=== PATIENT | female | born 1960 | race Caucasian/White ===

== ENCOUNTER 2024-01-13 06:10 | Day surgery (SDC) | payer SELFPAY ==
[2023-12-28 12:38] LABS: International Normalized Ratio 0.9; Partial Thromboplast Time 25.4 Seconds (24.1-36.2); Prothrombin Time (Protime)PT. 12.4 SECONDS (11.7-14.9)
[2023-12-28 13:38] LABS: AST(SGOT) 19 U/L (15-37); Alanine Aminotransfer ALT/SGPT 27 U/L (13-56); Albumin, Serum 3.7 g/dL (3.2-5.0); Alkaline Phosphatase 106 U/L (45-117); Bilirubin, Direct 0.15 mg/dL (0.00-0.30); Globulin 3.4 g/dL (2.2-4.2); Protein, Total 7.1 g/dL (6.4-8.2); Thyroid Stim Hormone (TSH) 0.01 uIU/mL (0.358-3.74)
[2024-01-13] VITALS (9 sets, daily range): BP systolic 115–149; BP diastolic 64–83; PULSE 71–92; RESP 12–18; TEMP 36.3–37.2; O2SAT 92–99; BMI 29.5
--- OUTSIDE RECORDS SUMMARY | 2024-01-13 06:13 | XMS RPT_ITS | CCD ---
Author Name Unknown Address [address] [facility] [address] [place] [address] Organization [facility] Care Team Providers Care Director Of Special Events Name Role Phone CASSANDRA ROWE BENJAMIN E Unavailable Unavailable REQUEST, DR BRADLEY LISTED Admitting Unavaila ble REQUEST, DR BRADLEY LISTED Attending Kristin PAZ, DR RODRIGUEZ Primary Care Unavailable REQUEST, DR BRADLEY LISTED Consulting Justino Alvarez Unavailable Samir Primary Care Unavailable Medications Current Medications Medication Drug Class(es) Dates Sig (Normalized) Sig (Original) levothyroxine sodium 0.112 mg oral tablet (12 sources) l-Thyroxine take 1 tablet by mouth once daily Levothyroxine Sodium 112 MCG TAKE 1 TABLET BY MOUTH EVERY DAY Active Completed/Discontinued Medications Medication Drug Class(es) Dates Sig (Normalized) Sig (Original) Aspir-81 (11 sources) Aspir-81 Not-Cornel ing/PRN Problems Active Problems Problem Classification Problem Date Documented Da te Episodic/Chronic Anxiety disorders (14 sources) Generalized anxiety disorder; Translations: [Generalized anxiety disorder] Chronic Chronic obstructive pulmonary disease and bronchiectasis (11 sources) Bronchitis; Translations: [Bronchitis] Episodic Immunizations and screening for infectious disease (11 sources) Exposure to communicable disease; Translations: [Exposure to the flu] Episodic Mood disorders (2 sources) Recurrent major depression in full remission; Translations: [Major depressive disorder, recurrent, in full remission] Chronic Other lower respiratory disease (11 sources) Cough; Translations: [Cough] Episodic Other nutritional; endocrine; and metabolic disorders (20 sources) Body mass index 30+ - obesity; Translations: [Obesity, unspecified] Chronic Other nutritional; endocrine; and metabolic disorders (1 source) Obesity, unspecified Chronic Other nutritional; endocrine; and metabolic disorders (10 sources) Obesity; Translations: [Other obesity due to excess calories] Chronic Other nutritional; endocrine; and metabolic disorders (6 sources) Other obesity due to excess calories Chronic Other nutritional; endocrine; and metabolic disorders (2 sources) Overweight Episodic Other screening for suspected conditions (not mental disorders or infectious disease) (1 source) Encounter for screening for malignant neoplasm of colon Episodic Residual codes; unclassified (1 source) Procedure and treatment not carried out because of patient's decision for unspecified reasons Episodic Thyroid disorders (20 sources) Autoimmune hypothyroidism; Translations: [Hypothyroidism, unspecified] Chronic Past or Other Problems Problem Classification Problem Date Documented Da te Episodic/Chronic Varicose veins of lower extremity (1 source) Asymptomatic varicose veins of bilateral lower extremities; Translations: [Asymptomatic varicose veins of bilateral lower extremities] Onset: 09-21-2017 Episodic Results Test Name Value Interpretation Reference Range Facil ity Vital Signs Date Time Vital Sign Value Performing Clinician Facility 12-16-2023 09:00-0500 Body height 156.21 cm [facility] 12-16-2023 09:00-0500 Body mass index (BMI) [Ratio] 28.92 kg/m2 [facility] 12-16-2023 09:00-0500 Body weight 70.58 kg [facility] Other 12-16-2023 09:00-0500 Diastolic blood pressure 84 mm[Hg] Just[facility] Tauntr Other [facility] Other 12-16-2023 09:00-0500 Respiratory rate 12 /min [facility] Other [facility] Other 12-16-2023 09:00-0500 Systolic blood pressure 131 mm[Hg] Justino Tauntr Other [facility] Other 12-08-2023 14:50-0500 Body height 156.21 cm Justino Tauntr Other [facility] Other 12-08-2023 14:50-0500 Body mass index (BMI) [Ratio] 28.59 kg/m2 Justino Ball Other [facility] Other 12-08-2023 14:50-0500 Body weight 69.76 kg Justino Ball Other [facility] Other 12-08-2023 14:50-0500 Diastolic blood pressure 74 mm[Hg] Justino Ball Other [facility] Other 12-08-2023 14:50-0500 Systolic blood pressure 122 mm[Hg] Justino Ball Other [facility] Other 11-16-2023 09:00-0500 Body height 156.21 cm Justino Ball Other [facility] Other 11-16-2023 09:00-0500 Body mass index (BMI) [Ratio] 29.18 kg/m2 Justino Ball Other [facility] Other 11-16-2023 09:00-0500 Body weight 71.22 kg Justino Ball Other [facility] Other 11-16-2023 09:00-0500 Diastolic blood pressure 76 mm[Hg] Justino Ball Other [facility] Other 11-16-2023 09:00-0500 Respiratory rate 12 /min Justino Ball Other [facility] Other 11-16-2023 09:00-0500 Systolic blood pressure 116 mm[Hg] Justino Ball Other [facility] Other 10-24-2023 14:34-0500 Body height 156.21 cm Justino Ball Other [facility] Other 10-24-2023 14:34-0500 Body mass index (BMI) [Ratio] 29.29 kg/m2 Justino Ball Other [facility] Other 10-24-2023 14:34-0500 Body weight 71.49 kg Justino Ball Other [facility] Other 10-24-2023 14:34-0500 Diastolic blood pressure 74 mm[Hg] Justino Ball Other [facility] Other 10-24-2023 14:34-0500 Systolic blood pressure 142 mm[Hg] Justino Ball Other [facility] Other 09-09-2023 15:09-0400 Body height 156.21 cm Justino Ball Other [facility] Other 09-09-2023 15:09-0400 Body mass index (BMI) [Ratio] 28.92 kg/m2 Justino Ball Other [facility] Other 09-09-2023 15:09-0400 Body weight 70.58 kg Justino Ball Other [facility] Other 09-09-2023 15:09-0400 Diastolic blood pressure 78 mm[Hg] Justino Ball Other [facility] Other 09-09-2023 15:09-0400 Systolic blood pressure 122 mm[Hg] Justino Ball Other [facility] Other 08-03-2023 14:45-0400 Body height 156.21 cm Justino Ball Other [facility] Other 08-03-2023 14:45-0400 Body mass index (BMI) [Ratio] 29.18 kg/m2 Justino Ball Other [facility] Other 08-03-2023 14:45-0400 Body weight 71.22 kg Justino Ball Other [facility] Other 08-03-2023 14:45-0400 Diastolic blood pressure 72 mm[Hg] Justino Ball Other [facility] Other 08-03-2023 14:45-0400 Systolic blood pressure 112 mm[Hg] Justino Ball Other [facility] Other 06-24-2023 12:15-0400 Body height 156.21 cm Justino Ball Other [facility] Other 06-24-2023 12:15-0400 Body mass index (BMI) [Ratio] 29.78 kg/m2 Justino Ball Other [facility] Other 06-24-2023 12:15-0400 Body weight 72.67 kg Justino Ball Other [facility] Other 06-24-2023 12:15-0400 Diastolic blood pressure 80 mm[Hg] Justino Ball Other [facility] Other 06-24-2023 12:15-0400 Systolic blood pressure 130 mm[Hg] Justino Ball Other [facility] Other 05-11-2023 12:54-0400 Body weight 74.3 kg Justino Ball Other [facility] Other 05-11-2023 12:54-0400 Diastolic blood pressure 77 mm[Hg] Justino Ball Other [facility] Other 05-11-2023 12:54-0400 Systolic blood pressure 143 mm[Hg] Justino Paz Other [facility] Other 01-21-2023 15:30-0400 Body height 156.21 cm Justino Paz Other [facility] Other 01-21-2023 15:30-0400 Body mass index (BMI) [Ratio] 33.98 kg/m2 Justino Paz Other [facility] Other 01-21-2023 15:30-0400 Body weight 82.92 kg Justino Paz Other [facility] Other 01-21-2023 15:30-0400 Diastolic blood pressure 99 mm[Hg] Justino Paz Other [facility] Other 01-21-2023 15:30-0400 Respiratory rate 12 /min Justino Paz Other [facility] Other 01-21-2023 15:30-0400 Systolic blood pressure 163 mm[Hg] Justino Paz Other [facility] Other Encounters Encounter Date Encounter Type Care Provider Facility Start: 12-20-2023 End: 12-20-2023 sherry Paz Facility:[facility] Start: 12-20-2023 Encounter for other preprocedural examination [facility] [place] Start: 12-20-2023 End: 12-20-2023 ambulatory [facility] Work Phone: Start: 12-20-2023 End: 12-20-2023 Patient encounter procedure [facility] Start: 12-16-2023 End: 12-16-2023 ambulatory Justino Paz Other [facility] Other Start: 12-16-2023 Encounter for other preprocedural examination [facility] Start: 12-16-2023 Office outpatient vi sit 25 minutes Justino Paz [facility] Start: 12-08-2023 End: 12-08-2023 ambulatory Justino Paz Other [facility] Other Start: 12-08-2023 Telephone encounter Justino Paz [facility] Start: 11-16-2023 End: 11-16-2023 ambulatory Justino Ball Other [facility] Other Start: 11-16-2023 Patient encounter procedure Justino Paz [facility] Start: 10-24-2023 End: 10-24-2023 ambulatory Justino Samir Other [facility] Other Start: 10-24-2023 Telephone encounter Justino Ball [facility] Start: 09-14-2023 End: 09-14-2023 ambulatory Justino Ball Other [facility] Other Start: 09-14-2023 Telephone encounter Justino Ball [facility] Start: 09-09-2023 End: 09-09-2023 ambulatory Justino Samir Other [facility] Other Start: 09-09-2023 Telephone encounter Justino Ball [facility] Start: 08-03-2023 End: 08-03-2023 ambulatory Justino Paz Other [facility] Other Start: 08-03-2023 Telephone encounter Justino Ball [facility] Start: 06-24-2023 End: 06-24-2023 ambulatory Justino Ball Other [facility] Other Start: 06-24-2023 Telephone encounter Justino Ball [facility] Start: 05-11-2023 End: 05-11-2023 ambulatory Justino Ball Other [facility] Other Start: 05-11-2023 Telephone encounter Justino Ball [facility] Start: 01-21-2023 End: 01-21-2023 ambulatory Justino Paz Other [facility] Other Start: 01-21-2023 Office outpatient vi sit 15 minutes Justino Paz [facility] Start: 01-18-2023 End: 01-18-2023 ambulatory Justino Paz Other [facility] Other Start: 01-18-2023 Telephone encounter Justino Paz [facility] Start: 01-17-2023 End: 01-18-[address] NONE LISTED REQUEST Facility: Start: 01-17-2023 End: 01-17-2023 Patient encounter procedure [facility]- Start: 03-09-2021 End: 03-09-2021 Patient encounter procedure [facility]- Start: 01-16-2021 End: 01-16-2021 Patient encounter procedure [facility]- Start: 12-20-2020 End: 12-20-2020 Patient encounter procedure [facility]- Start: 07-02-2019 End: 07-02-2019 Patient encounter procedure [facility]- Start: 12-11-2017 End: 12-11-2017 Emergency department patient visit [facility]- Start: 09-21-2017 End: 09-26-2017 Ambulatory CASSANDRA CAZARESDELPHINE [facility] Start: 09-05-2017 End: 09-05-2017 Patient encounter procedure [facility]- Start: 08-31-2017 End: 08-31-2017 Patient encounter procedure [facility]- Start: 08-24-2016 End: 08-24-2016 Patient encounter procedure [facility]- Start: 09-05-2015 End: 09-05-2015 Departed Referred [facility]- Start: 12-16-2014 End: 12-16-2014 Admission to same day surgery center [facility]- Start: 11-23-2014 End: 11-23-2014 Patient encounter procedure [facility]- Start: 11-21-2014 End: 11-21-2014 Patient encounter procedure [facility]- Start: 10-07-2011 End: 10-07-2011 Patient encounter procedure [facility]- Start: 03-30-2010 End: 03-30-2010 Patient encounter procedure [facility]- Start: 09-05-2009 End: 09-05-2009 Emergency department patient visit [facility]- Procedures Date Procedure Procedure Detail Performing Clinician Start: 12-20-2023 Plain chest X-ray Start: 12-20-2023 12 lead ECG Immunizations Immunization Date Immunization Notes Care Provider Fa cility 10-12-2021 COVID-19 Vaccine Pfi zer - Documentation Purposes Only Justino Paz Other [facility] Other 01-16-2021 COVID-19 Vaccine Charbel - Documentation Purposes Only Justino Paz Other [facility] Other 02-16-2015 tetanus toxoid, redu terrell diphtheria toxoid, and acellular pertussis vaccine, adsorbed Justino Paz Other [facility] Other Payers Date Payer Category Payer Self-pay 2023 Unknown [id number] 1961 Self-pay [id number] Unknown [id number] Unknown [id number] Unknown [id number] Social History Date Type Detail Facility Sex Assigned At [facility] Other Start: 1960 Sex Assigned At Female B [facility] Work Phone: Clinical Notes 01-21-2023 to 12-16-2023 Note Date & Type Note Facility [facility] Other 02-01-2024 Evaluation note* Encounter Date Diagnosis Assessment Notes Treatment Notes Treatment Clinical Notes Dec, Overweight (ICD-10 - E66.3) [facility] Other 01-10-2024 Evaluation note* Encounter Date Diagnosis Assessment Notes Treatment Notes Treatment Clinical Notes Nov, Medicare annual wellness visit, initial (ICD-10 - Z00.00) Personalized health advice was given to the beneficiary including a written plan for screenings discussed and provided. Advanced care planning reviewed and/or information given as requested. Additional counseling was provided here today in regards to, [ ]. The above visit was performed by [ ], under direct supervision of [ ]. Document reviewed and amended by provider signed below. Nov, RIVER (generalized anxiety disorder) (ICD-10 - F41.1) Healthy diet and exercise Continue SNRI treatment Avoid abrupt w/d from medication Nov, Other specified hypothyroidism (ICD-10 - E03.8) Nov, Autoimmune thyroiditis (ICD-10 - E06.3) Yearly TSH, clinically euthyroid Nov, Multinodular goiter (ICD-10 - E04.2) No change in size, nontender Nov, Overweight (ICD-10 - E66.3) This patient has been instructed on a low-fat, high-fiber diet. They are instructed to reduce calories, portion sizes and snacks. It is recommended that they exercise for 30 minutes, 3-5 times weekly. Planning on abdominoplasty in January Encouraged to lose more weight Nov, Screening mammography declined (ICD-10 - Z53.20) Nov, Screening for colon cancer (ICD-10 - Z12.11) [facility] Other 12-18-2023 Evaluation note* Encounter Date Diagnosis Assessment Notes Treatment Notes Treatment Clinical Notes Oct, Other obesity due to excess calories (ICD-10 - E66.09) [facility] Other 11-08-2023 Evaluation note* Encounter Date Diagnosis Assessment Notes Treatment Notes Treatment Clinical Notes Sep, Other obesity due to excess calories (ICD-10 - E66.09) [facility] Other 11-03-2023 Evaluation note* Encounter Date Diagnosis Assessment Notes Treatment Notes Treatment Clinical Notes Sep, Other obesity due to excess calories (ICD-10 - E66.09) [facility] Other 09-27-2023 Evaluation note* Encounter Date Diagnosis Assessment Notes Treatment Notes Treatment Clinical Notes Jul, Other obesity due to excess calories (ICD-10 - E66.09) [facility] Other 08-18-2023 Evaluation note* Encounter Date Diagnosis Assessment Notes Treatment Notes Treatment Clinical Notes Jun, Other obesity due to excess calories (ICD-10 - E66.09) [facility] Other 07-05-2023 Evaluation note* Encounter Date Diagnosis Assessment Notes Treatment Notes Treatment Clinical Notes May, Other obesity due to excess calories (ICD-10 - E66.09) [facility] Other 03-17-2023 Evaluation note* Encounter Date Diagnosis Assessment Notes Treatment Notes Treatment Clinical Notes Jan, Autoimmune hypothyroidism (ICD-10 - E03.9) Yearly TSH Continue Levothyroxine w/o change Jan, Obesity (BMI 30-39.9) (ICD-10 - E66.9) This patient has been instructed on a low-fat, high-fiber diet. They are instructed to reduce calories, portion sizes and snacks. It is recommended that they exercise for 30 minutes, 3-5 times weekly. Discussed affordable medical treatment: Adipex Discussed exercise and restricting calories Jan, RIVER (generalized anxiety disorder) (ICD-10 - F41.1) Healthy diet and exercise [facility] Other Evaluation noteNo [employer] Other Evaluation noteNo assessment information available [facility] Work Phone: History general Narrative - Reported* Type Description Date Medical History Hypothyroid Medical History Autoimmune hypothyroidism Surgical History FNA THYROID NODULE 2014 Hospitalization History broken leg as a child [facility] Other Summary Purpose Family History No Family History Records FoundNo Family History Records FoundNo Family History Records Found Advance Directives No Advanced Directives Records FoundNo Advanced Directives Records FoundNo Advanced Directives Records Found Chief Complaint and Reason for Visit Chief Complaint Hypothyroidism Hypothyroid V70.0 Lab Cough, Heartburn, Nausea Alone, Goiter - Thyroid, R/O Neoplasm - Procedure In Xra V76.2 Multinodulat Thyroid Goiter - Us E04.2, E03.8, I83.811, K21.0, L50.8, R53 Painful Varicose Veins Z79.899 R53.83 Lab Lab Autoimmune Hypothyroidism E6.3 Covid Vaccine [facility] Direct Access Lab PRE OP XRAY< CARDIO EKG PNT HAS ORDER Additional Source Comments INFORMATION SOURCE (unrecogn ized section and content) DATE CREATED AUTHOR AUTHOR'S ORGANIZ ATION 01/18/2023 [facility] DATE CREATED AUTHOR AUTHOR'S ORGANIZ ATION 12/22/2023 [facility] [place] REASON FOR VISIT (unrecogniz ed section and content) Lab ResultsWellnessREFILLwei ght checkRefillBP and WeightAdipexweight and BP checkWellnesscologuard resultsWeight/BPPre-Op Clearance Goals (unrecognized section and content) Goals may be documented in a n alternate section FOR RECORDS PERTAINING TO PATIENTS WHO ARE OR HAVE BEEN ENROLLED IN A CHEMICAL DEPENDENCY/SUBSTANCEABUSE PROGRAM, SOME INFORMATION MAY BE OMITTED. This clinical summary was aggregated from multiple sources. Caution should be exercised in using it in the provision of clinical care. This summary normalizes information from multiple sources, and as a consequence, information in this document may materially change the coding, format and clinical context of patient data. In addition, data may be omitted in some cases. CLINICAL DECISIONS SHOULD BE BASED ON THE PRIMARY CLINICAL RECORDS. [employer] provides no warranty or guarantee of the accuracy or completeness of information in this document.
[2024-01-13] MEDS: Lactated Ringers 1,000 ML 15 ML IV (06:37)
--- NOTE | 2024-01-13 07:33 | PCM.HP.BLA ---
History and Physical Date of Admission: 01/13/24 The patient is examined. There are no changes to the H&P dated 12/16/23. She has atrophic skin of the abdomen and presents for abdominoplasty. Informed consent obtained. Assessment & Plan Assessment/Plan (1) Encounter for cosmetic procedure: (2) Localized adiposity: (3) Atrophic skin: PLAN: Plan Pt for abdominoplasty.
[2024-01-13] MEDS: Cefazolin 2 GM in 0.9% Normal Saline (100mL Bag) 100 ML IV (08:00)
[2024-01-13] MEDS: Gentamicin 80 MG/2 ML Vial (08:20)
[2024-01-13] MEDS: Methylene Blue 1% 100 MG/10 ML VIAL (08:20)
[2024-01-13] MEDS: Bupivacaine 0.25% 30 ML Vial (12:00)
--- NOTE | 2024-01-13 12:29 | DCINST_ITS ---
Discharge Instructions Dressing / Incision Additional Dressing/Incision Instructions:: Follow instructions given in the office. Follow Up Care Please Follow Up With: Fany Rodarte MD When: In 1 week Test Results: Test results from this visit will be discussed in further detail at your follow- up appointment, if applicable. Discharge Plan Admission Attending Provider: Fany Rodarte Primary Care Provider: MICHAEL PAZ Discharge Orders/Prescriptions Prescriptions: No Action aspirin [Adult Aspirin Regimen] 81 mg tablet,delayed release (DR/EC) 81 mg PO DAILY Patient Comments: LAST DOSE TO BE 01/06/24 FOR SURGERY ON 01/13/24 levothyroxine 25 mcg tablet 25 mcg PO DAILY omeprazole magnesium [Prilosec OTC] 20 mg tablet,delayed release (DR/EC) 20 mg PO DAILY cephalexin 500 mg capsule 500 mg PO BID Qty: 14 0RF ikazyowlfmao-Cq-hfcc-minerals Tablet 1 tab PO DAILY Disposition Disposition (needs filled in before D/C Order can be placed): Home, Self Care
--- NOTE | 2024-01-13 12:33 | PCM.OPRPT ---
Problems Associated Problem List Diagnoses (1) Encounter for cosmetic procedure: (2) Localized adiposity: (3) Atrophic skin: Report of Operation Date of Procedure: 01/13/24 Pre-Operative Diagnosis: Abdominal skin laxity, localized adiposity, encounter for cosmetic surgery Post-Operative Diagnosis: Same Surgery/Procedure Performed:: Abdominoplasty including muscle plication and translocation of the umbilicus Surgeon: Fany Rodarte fiction writer: LILY AGGARWALracecourse barrier attendant Type of Anesthesia: General Specimen's removed: Skin and adipose tissue??discarded Drains: ERIK x 2 Estimated Blood Loss (mL): 50 cc Description of Procedure: The patient presents today desirous of abdominoplasty. The expected pre-, intra-, postoperative course was reviewed. The potential risk and complications of surgery were reviewed which include but are not exclusive of bleeding, infection, pain, numbness, asymmetry, scar tissue, skin necrosis, the need for further surgery, DVT, and even . She is marked in the preop holding area prior to surgery. The patient is brought to the operating room and placed under general anesthesia in the supine position. The abdomen is prepped and draped in the usual sterile fashion. Care is taken to pad all pressure points, insert a Em catheter, a warming blanket, and sequential compression stockings. We initially began with making the premarked incision. This is carried down through the subcutaneous tissue to the abdominal fascia. Dissection then continued cephalad to the umbilicus. A circumferential incision was made around the umbilicus and care is taken to preserve a sleeve of adipose tissue to facilitate vascularity of the umbilicus. Dissection then continued cephalad to the xiphoid area. The wound is irrigated with antibiotic solution and checked for hemostasis which is controlled with cautery. We then assessed the muscular fascia. The patient has not had children in the past however she is noted to have some diastases in the lower abdomen. Therefore the medial margins of the rectus abdominis muscle are marked and an imbrication is performed using [id number] Nurolon sutures followed by a running nylon suture. A Vicryl suture was used to plicate the umbilicus to the abdominal fascia. The patient was then placed in a semi-Fowlers position and the skin to be removed is demarcated. The skin and fat are then removed in the premarked area. Hemostasis is controlled with cautery. ERIK drains x 2 are then brought out through separate stab incision and laid beneath the flap. The wound edges are then initially stapled in position. With a satisfactory contour noted, the wound is closed. Initially Vicryl sutures were used to approximate some of the deep subcutaneous tissue. The incision lines are then approximated in 3 layers using a running strata fix suture. Skin edges are approximated with a subcuticular suture. A midline longitudinal incision is made for the umbilicus. This is approximately 2.5 cm in length. The incision is made and carried down through the subcutaneous tissue. The umbilicus is identified and brought up through the incision. It is then plicated to the fascial suture allowing imbrication of the umbilicus. The skin edges of the umbilicus were then approximated with a running subcuticular Monocryl suture. The incisions are injected with quarter percent plain Marcaine and some Marcaine is injected within the drains. The wounds are dressed with Xeroform, ABDs and tape. She is placed in an abdominal binder. She tolerated the procedure well was taken to the recovery room in an awake and stable condition. Needle and sponge counts are correct. Complications None Admit VTE Documentation VTE Mechan Device Prophylaxis: SCD's
[2024-01-13] MEDS: BENZOCAINE/MENTHOL 1 LOZENGE 2 LOZENGE MUCOUS MEM (14:41)
== END 2024-01-13 17:24 | disposition home or self-care (01) ==
LOC: SDC 06:11 → AC 06:11
PROVIDERS: Anesthesiology; Referring Provider Plastic Surgery; Visit Provider Plastic Surgery
PROC: (CPT 15830; principal; 2024-01-13 07:15)
DX: Z41.1 Encounter for cosmetic surgery (principal); E21.5 Disorder of parathyroid gland, unspecified; E65 Localized adiposity; L90.9 Atrophic disorder of skin, unspecified; Z79.890 Hormone replacement therapy; Z79.899 Other long term (current) drug therapy; Z79.82 Long term (current) use of aspirin; K21.9 Gastro-esophageal reflux disease without esophagitis; L57.4 Cutis laxa senilis
CPT/HCPCS: 15830; 00802; 36415; 80076; 84443; 85610; 85730; J7120; J2405